=== PATIENT | female | born 1980 | race African-American/Black ===

== ENCOUNTER 2018-10-18 18:27 | Emergency (ER) | payer MEDICAID ==
[~2018-10-18] VITALS: Ht 175.3 cm; Wt 61.2 kg
[2018-10-18 18:38] VITALS: BP 143/95
--- NOTE | 2018-10-18 18:53 | NUR ---
PT AMBULATED WITH CRUTCHES TO ED BED 12
--- NOTE | 2018-10-18 18:55 | NUR ---
PT TAKEN TO XRAY
[2018-10-18] MEDS ORDERED: KETOROLAC 30 MG/ML VIAL IM ONE (19:10)
--- NOTE | 2018-10-18 19:16 | NUR ---
S/P TRIP AND FALL LAST TUESDAY, LT LEG TWISTED, LT LEG PAIN, NO APPARENT INJURY, LT LEG MILD SWOLLEN, WITH BRUSING, ABLE TO MOVE LT BIG TOE. NOT SEEN ANY PROVIDER. TOOK ADVIL 2 HRS AGO, PAIN NOT RELIEVED.
--- NOTE | 2018-10-18 20:29 | NUR ---
SPLINT IN PLACE, +CMS. PATIENT STATES IT DOES NOT FEEL TOO TIGHT. ABLE TO MOVE TOES.
--- NOTE | 2018-10-18 20:30 | NUR ---
SHORT LEG SPLINT WAS PLACED ON PTS LEFT FOOT THEN WRAPPED WITH JANICE BANDAGE
[2018-10-18 20:45] VITALS: BP 143/95
--- NOTE | 2018-10-18 20:46 | NUR ---
Patient discharged with v/s stable. Written and verbal after care instructions given and explained. Patient alert, oriented and verbalized understanding of instructions. Wheel Chair Assisted with to car. All questions addressed prior to discharge. ID band removed. Patient advised to follow up with PMD. Rx of TRAMADOL, IBUPROFEN, TYLENOL given. Patient educated on indication of medication including possible reaction and side effects. Opportunity to ask questions provided and answered.
== END 2018-10-18 20:45 | disposition home or self-care (01) ==
LOC: MED 18:27
DX: S82.842A Displaced bimalleolar fracture of left lower leg, initial encounter for closed fracture (principal); R03.0 Elevated blood-pressure reading, without diagnosis of hypertension; X50.9XXA Other and unspecified overexertion or strenuous movements or postures, initial encounter; Y93.89 Activity, other specified; Y92.89 Other specified places as the place of occurrence of the external cause; Y99.8 Other external cause status
CPT/HCPCS: 29515; 73610; 73630; 81025; 96372; 99283; J1885